=== PATIENT | female | born 1950 | race Caucasian/White ===

== ENCOUNTER → 2016-07-09 | Outpatient (CLI) | payer MEDICARE, BC ==
--- NOTE | 2016-07-10 10:02 | RAD ---
DATE: 07/09/2016 EXAM: MAMMO SEGUNDO SCREENING BILATERAL HISTORY: Screening COMPARISON: 10/03/2014 This study was interpreted with the benefit of Computerized Aided Detection (CAD). FINDINGS: The breast parenchyma Is heterogeneiously dense, which could reduce sensitivity of mammography. Breast parenchyma level C. Benign appearing calcification is noted in the right breast. A dominant mass or suspect group of calcifications is not seen in either breast. There is some mild skin thickening of both breasts. This likely reflects a systemic process. There has not been a significant change in the appearance of the breasts compared to the previous exam IMPRESSION: Benign findings BI-RADS CATEGORY: 2 BENIGN FINDING(S) RECOMMENDED FOLLOW-UP: 12M 12 MONTH FOLLOW-UP PQRS compliance statement: Patient information was entered into a reminder system with a target due date 07/09/2017 for the next mammogram. Mammography is a sensitive method for finding small breast cancers, but it does not detect them all and is not a substitute for careful clinical examination. A negative mammogram does not negate a clinically suspicious finding and should not result in delay in biopsying a clinically suspicious abnormality. "Our facility is accredited by the [employer] Mammography [employer]."
== END | disposition home or self-care (01) ==
LOC: MAMMO 11:18
PROVIDERS: ATTEND Obstetrics & Gynecology
DX: Z12.31 Encounter for screening mammogram for malignant neoplasm of breast (principal)
CPT/HCPCS: 77063; G0202; 77067

== ENCOUNTER → 2017-08-10 | Outpatient (CLI) | payer MEDICARE, BC ==
--- NOTE | 2017-08-10 12:39 | RAD ---
DATE: 08/10/2017 EXAM: MAMMO SEGUNDO SCREENING BILATERAL HISTORY: Routine screen COMPARISON: 07/09/2016 This study was interpreted with the benefit of Computerized Aided Detection (CAD). The breast parenchyma is heterogeneously dense, which could reduce sensitivity of mammography. Breast parenchyma level C. FINDINGS: 2-D and 3-D tomosynthesis imaging was performed in CC and MLO projections. The fibroglandular pattern is heterogeneous in a somewhat nodular pattern. No new or enlarging breast densities are seen. Benign type calcifications are again noted. No suspicious microcalcifications have developed. IMPRESSION: Stable mammograms without evidence of malignancy. BI-RADS CATEGORY: 2 BENIGN FINDING(S) RECOMMENDED FOLLOW-UP: 12M 12 MONTH FOLLOW-UP PQRS compliance statement: Patient information was entered into a reminder system with a target due date for the next mammogram. Mammography is a sensitive method for finding small breast cancers, but it does not detect them all and is not a substitute for careful clinical examination. A negative mammogram does not negate a clinically suspicious finding and should not result in delay in biopsying a clinically suspicious abnormality. "Our facility is accredited by the [employer] Mammography [employer]."
== END | disposition home or self-care (01) ==
LOC: MAMMO 10:51
PROVIDERS: ATTEND Obstetrics & Gynecology
DX: Z12.31 Encounter for screening mammogram for malignant neoplasm of breast (principal)
CPT/HCPCS: 77063; 77067

== ENCOUNTER → 2020-01-16 | Outpatient (CLI) | payer MEDICARE, BC ==
--- NOTE | 2020-01-19 11:01 | RAD ---
DATE: 01/16/2020 3:14 PM EXAM: MAMMO SEGUNDO SCREENING BILATERAL HISTORY: Screening COMPARISON: 07/09/2016, 08/10/2017 Bilateral full field craniocaudal and mediolateral oblique images were obtained using digital technique. This study was interpreted with the benefit of Computerized Aided Detection (CAD). FINDINGS: Breast Density: HETERO The breast parenchyma Is heterogeneously dense, which could reduce sensitivity of mammography. Breast parenchyma level C Asymmetry in the medial middle third right breast with questionable associated architectural distortion is identified on the right cc view. Negative left mammogram. IMPRESSION: Right breast asymmetry, findings for which additional imaging is advised. Recommend right CC spot compression view, preferably 3-D tomographic views and a full-field lateral view. BI-RADS CATEGORY: 0 INCOMPLETE: NEEDS ADDITIONAL IMAGING EVALUATION AND/OR PRIOR MAMMOGRAMS FOR COMPARISON. RECOMMENDED FOLLOW-UP: ADD ADDITIONAL IMAGING The patient will be contacted to return for additional imaging and a supplemental report will follow. PQRS compliance statement: Patient information was entered into a reminder system with a target due date for the next mammogram. Mammography is a sensitive method for finding small breast cancers, but it does not detect them all and is not a substitute for careful clinical examination. A negative mammogram does not negate a clinically suspicious finding and should not result in delay in biopsying a clinically suspicious abnormality. "Our facility is accredited by the [employer] Mammography [employer]."
== END ==
LOC: MAMMO 14:53
PROVIDERS: ATTEND Obstetrics & Gynecology
DX: Z12.31 Encounter for screening mammogram for malignant neoplasm of breast (principal)
CPT/HCPCS: 77063; 77067

== ENCOUNTER → 2020-01-31 | Outpatient (CLI) | payer MEDICARE, BC ==
--- NOTE | 2020-01-31 18:23 | RAD ---
Examination: 1. Digital right diagnostic mammogram. 2. Limited right breast ultrasound. INDICATION: 69-year-old woman with a history of multiple sclerosis is recalled from screening for asymmetry in the medial right breast. COMPARISON: Screening mammograms of 01/16/2020 and 08/10/2017. TECHNIQUE: Spot compression right CC and right full-field ML view were obtained. In addition, targeted ultrasound of the upper inner right breast was also performed. FINDINGS: Heterogeneously dense breast parenchyma. Additional mammographic views showed a change in configuration of the breast parenchyma in a pattern suggesting overlap of fibroglandular tissue. Targeted ultrasound of the upper inner quadrant right breast reveals no suspicious sonographic abnormality. No right axillary adenopathy. IMPRESSION: Benign findings on diagnostic right mammogram and targeted right breast ultrasound. Recommend return to routine screening next due in one year. BI-RADS Category 2 Benign findings Patient entered into a reminder system with targeted due date for next mammogram. Electronically signed by: Laine Simmons MD (01/31/2020 6:20 PM) [id number]
== END ==
LOC: MAMMO 14:51
PROVIDERS: ATTEND Family Medicine
DX: R92.2 Inconclusive mammogram (principal)
CPT/HCPCS: 76641; 77065

== ENCOUNTER → 2021-01-10 | Outpatient (CLI) | payer MEDICARE, BC | LOC: LAB 14:48 | PROVIDERS: ATTEND Psychiatry & Neurology Neurology | DX: G35 Multiple sclerosis (principal); E55.9 Vitamin D deficiency, unspecified | CPT/HCPCS: 36415 ==